=== PATIENT | male | born 1965 | race Caucasian/White ===

== ENCOUNTER → 2019-10-17 08:29 | Outpatient (CLI) | payer BC, SELFPAY ==
--- NOTE | ~2019-10-17 | MR_ITS ---
EXAMINATION: MR orbits face neck wo con EXAM DATE: 10/17/2019 09:17 INDICATION: Right eye swelling. TECHNIQUE: Magnetic resonance imaging (MRI) images of the orbits were obtained. The following sequen bella were acquired: Dedicated thin orbital coronal T1, coronal T2 fat suppression, axial T1, axial T2 fat suppression sequences. Correlation is made to brain MRI same date. FINDINGS: The globes, extraocular muscles, optic nerves are symmetric and unremarkable. There is no r etrobulbar edema or mass. Periorbital regions are unremarkable. There is mild bilateral ethmoid mucop eriosteal thickening. IMPRESSION: Unremarkable orbits, globes. Mild ethmoid mucoperiosteal thickening. Reviewed, dictated and finalized at location A. IMPRESSION: Unremarkable orbits, globes. Mild ethmoid mucoperiosteal thickenin g.
--- NOTE | ~2019-10-17 | MR_ITS ---
EXAMINATION: MR brain/brain stem wo con EXAM DATE: 10/17/2019 09:06 INDICATION: Persistent periorbital edema, right eye swelling, blurred vision bilaterally. TECHNIQUE: Magnetic resonance imaging (MRI) of the brain/brain stem obtained without contrast. Sagitt al T1, axial diffusion, gradient echo (T2*), T1, T2, FLAIR sequences obtained. There is no prior st udy for comparison. FINDINGS: There are no areas of restricted diffusion to suggest acute infarction. There is no acute hemorrhage seen on the T2*, a hemosiderin sensitive sequence. No intraparenchymal brain mass. The ve ntricles are normal in size. There are no extra-axial collections. Flow voids are seen in the cereb ral arteries on the T2-weighted sequences consistent with their expected patency. Soft tissue is unr emarkable. IMPRESSION: 1. Unremarkable brain MRI examination. Reviewed, dictated and finalized at location A.
== END ==
PROVIDERS: Visit Provider Family Medicine Adolescent Medicine
DX: H05.229 Edema of unspecified orbit (principal)
CPT/HCPCS: 70540; 70551

== ENCOUNTER 2021-08-03 13:48 | Outpatient (CLI) | payer BC, SELFPAY ==
[2021-08-03 16:55] LABS: Free T4 Free Thyroxine 1.27 ng/mL (0.78-2.19)
[2021-08-05 13:58] LABS: Thyroid Stimulating Immunoglob <89 % baseline (<140)
[2021-08-06 06:19] LABS: Triiodothyronine T3 Free 3.3 pg/mL (2.3-4.2)
[2021-08-06 18:04] LABS: Thyrotropin Receptor Antibody <1.00 IU/L (<=2.00)
== END 2021-08-03 13:49 | disposition home or self-care (01) ==
LOC: ANHWCLAB 13:52
PROVIDERS: PCP Family Medicine Adolescent Medicine; Referring Provider Internal Medicine Endocrinology, Diabetes & Metabolism; Visit Provider Internal Medicine Endocrinology, Diabetes & Metabolism
DX: E04.9 Nontoxic goiter, unspecified (principal); E11.9 Type 2 diabetes mellitus without complications; R60.0 Localized edema
CPT/HCPCS: 36415; 83519; 84439; 84443; 84445; 84481

== ENCOUNTER → 2021-09-03 07:23 | Outpatient (CLI) | payer BC, SELFPAY ==
--- NOTE | ~2021-09-03 | XR_ITS ---
EXAMINATION: XR chest 2V DATE: 09/03/2021 08:02 INDICATION: Localized edema. TECHNIQUE: Frontal and lateral views of the chest were obtained on 3 radiographs. COMPARISON: None. FINDINGS: The chest demonstrates clear lungs without pneumonia, pleural effusion, or pneumothorax. Th e heart size is normal. IMPRESSION: 1. No acute cardiopulmonary disease. Reviewed, dictated and finalized at location A.
== END ==
PROVIDERS: PCP Family Medicine Adolescent Medicine; Visit Provider Physician Assistant
DX: R60.0 Localized edema (principal)
CPT/HCPCS: 71046

== ENCOUNTER → 2022-07-05 06:52 | Outpatient (CLI) | payer BC, SELFPAY ==
--- NOTE | ~2022-07-05 | MR_ITS ---
EXAMINATION: MR brain/brain stem wo con DATE: 07/05/2022 07:30 INDICATION: Bilateral ptosis. TECHNIQUE: Magnetic resonance imaging (MRI) of the brain and brainstem was performed without intraven ous contrast. COMPARISON: Brain MRI 10/17/2019 FINDINGS: There is no intracranial hemorrhage, acute infarction, or abnormal intracranial mass lesion . The ventricles are normal in size. The orbits are normal. The extraocular muscles are normal. The p aranasal sinuses are clear. The mastoid air cells are normal. IMPRESSION: 1. Normal brain. Reviewed, dictated and finalized at location A. IMPRESSION: 1. Normal brain.
== END ==
PROVIDERS: PCP Family Medicine Adolescent Medicine; Visit Provider Student in an Organized Health Care Education/Training Program
DX: H02.403 Unspecified ptosis of bilateral eyelids (principal)
CPT/HCPCS: 70551